=== PATIENT | female | born 1985 | race Two or more races ===

== ENCOUNTER 2022-11-09 12:28 | Inpatient (IN) | payer BC, OTHER ==
[2022-11-09] MEDS ORDERED: ONDANSETRON 4 MG/2 ML VIAL IVP STA (12:50)
[2022-11-09] MEDS ORDERED: IPRATROPIUM-ALBUTEROL 3 ML NEB INHALATION STA (12:50)
[2022-11-09] MEDS ORDERED: SODIUM CHLORIDE 0.9% 1,000 ML IV STA ×2 (12:50→15:25)
--- NOTE | 2022-11-09 12:55 | ED ---
Chest Pain HPI - General Chief Complaint: Upper Respiratory Infection Stated Complaint: Chest Pain, Vomiting Blood,also in nose blows Time Seen by Provider: 11/09/22 12:42 Source: patient, RN notes reviewed Mode of arrival: ambulatory Limitations: no limitations - History of Present Illness Initial Comments: This is a 37-year-old female who presents to the emergency department for chest pain and shortness of breath. States that the symptoms started 2-3 days ago. Symptoms have now progressed into nausea and vomiting as well. The repetitive coughing has caused blood in her sputum, which is also mixed in with her vomit. She has also noticed blood when blowing her nose too hard. She does have a history of asthma and has not gotten any relief in symptoms from her inhaler. Describes the chest pain as someone sitting on her chest. Denies any personal or family cardiac history. Also denies having symptoms this severe in the past. Denies any fevers, chills, sore throat, palpitations, abdominal pain, diarrhea, back pain, or headaches. MD Complaint: chest pain Onset/Timin -: days(s) - Related Data Home Medications Medication Instructions Recorded Confirmed ALPRAZolam [Xanax] 0.25 mg PO TID PRN 11/09/22 11/09/22 Acetaminophen-Codeine 300-30mg 0.5 - 1 tab PO Q6H PRN 11/09/22 11/09/22 [Tylenol w/codeine #3] Cetirizine HCl [Zyrtec] 10 mg PO DAILY 11/09/22 11/09/22 Hydrocortisone Cream 1 applic TOPICAL QID PRN 11/09/22 11/09/22 [Hydrocortisone 2.5% Cream] hydrOXYzine HCL [Atarax] 50 mg PO TID PRN 11/09/22 11/09/22 Allergies Allergy/AdvReac Type Severity Reaction Status Date / Time No Known Allergies Allergy Verified 11/09/22 15:50 Review of Systems ROS Statement: Those systems with pertinent positive or pertinent negative responses have been documented in the HPI. ROS Other: All systems not noted in ROS Statement are negative. Past Medical History Past Medical History: No Reported History History of Any Multi-Drug Resistant Organisms: None Reported Past Surgical History: Tubal Ligation Past Psychological History: Anxiety, Depression Smoking Status: Current every day smoker Past Alcohol Use History: None Reported Past Drug Use History: Marijuana General Exam Limitations: no limitations General appearance: alert, anxious Head exam: Present: atraumatic, normocephalic, normal inspection Respiratory exam: Present: normal lung sounds bilaterally. Absent: respiratory distress, wheezes, rales, rhonchi, stridor Cardiovascular Exam: Present: regular rate, normal rhythm, normal heart sounds. Absent: systolic murmur, diastolic murmur, rubs, gallop, clicks GI/Abdominal exam: Present: soft, normal bowel sounds. Absent: distended, tenderness, guarding, rebound, rigid Neurological exam: Present: alert, oriented X3, CN II-XII intact Psychiatric exam: Present: normal affect, normal mood Skin exam: Present: warm, dry, intact, normal color. Absent: rash Course Vital Signs 11/09/22 11/09/22 11/09/22 12:35 13:12 13:22 Temperature 98.6 F Pulse Rate 106 H 87 98 Respiratory 20 Rate Blood Pressure 107/71 O2 Sat by Pulse 99 Oximetry 11/09/22 11/09/22 15:19 15:47 Temperature 98.7 F Pulse Rate 112 H 99 Respiratory 18 Rate Blood Pressure 116/77 O2 Sat by Pulse 99 Oximetry Chest Pain MDM - MDM This is a 37-year-old female who presents to the emergency department for chest pain and shortness of breath. Was pt. sent in by a medical professional or institution? @ -No Did you speak to anyone other than the patient for history? @ -No Did you review nursing and triage notes? @ -Yes, and I agree, it is accurate with regards to the patient's symptoms. Were old charts reviewed? @ -No Differential Diagnosis? @ -Differential Chest Pain: Stable Angina, Unstable Angina, STEMI, NSTEMI Aortic Dissection, Pneumothorax, Musculoskeletal, Esophageal Spasm GERD, Cholecystitis, Pancreatitis, Zoster, this is not meant to be an all-inclusive list. EKG interpreted by me (3pts min.)? @ -EKG interpreted by me demonstrating the following: Sinus rhythm. Ventricular rate 96 beats per minute, MS interval 139 ms, QRS duration 85 ms, QTC 391 ms. X-rays interpreted by me (1pt min.)? @ -Chest x-ray obtained. My interpretation identifies a consolidation to the right mid and lower lobe of the lung. CT interpreted by me (1pt min.)? @ -CT angiogram of the chest obtained. My interpretation identifies a consolidation in the right mid and lower lobe of the lung. U/S interpreted by me (1pt. min.)? @ -Not obtained What testing was considered but not performed? (CT, X-rays, U/S, labs)? Why? @ -None What meds were considered but not given? Why? @ -None Did you discuss the management of the patient with other professionals? @ -Yes, Dr. Guzman, who accepts the patient for admission. Did you reconcile home meds? @ -Yes Was smoking cessation discussed for >3mins.? @ -No Was critical care preformed (if so, how long)? @ -No Were there social determinants of health that impacted care today? How? (Homelessness, low income, unemployed, alcoholism, drug addiction, transportation, low edu. Level, literacy, decrease access to med. care, nursing home, rehab)? @ -No Was there de-escalation of care discussed even if they declined? (Discuss DNR or withdrawal of care, Hospice)? @ -No What co-morbidities impacted this encounter? (DM, HTN, Smoking, COPD, CAD, Cancer, CVA, Hep., AIDS, mental health diagnosis, sleep apnea, morbid obesity)? @ -Asthma Was patient admitted / discharged? @ -Admitted. Lab work obtained revealing leukocytosis and an elevated d-dimer. Hypokalemia was also present. Chest x-ray reveals a patchy consolidation in the right mid and lower lobe of the lung. She was given a DuoNeb breathing treatment with only minor relief in symptoms. She did continue to complain of severe chest pain and was given a dose of Toradol and morphine which she found beneficial. CT angiogram of the chest was obtained in light of the elevated d- dimer. This identified no evidence of a pulmonary embolus. It did again identify the extensive right mid and lower lobe infiltrate with associated pleural effusion. Findings reviewed with the patient, in that her symptoms are related to pneumonia. Patient does meet sepsis criteria with the leukocytosis and tachycardia. She was given a total of 2L bolus of IV fluids, meeting the 30mL/kg requirement for sepsis fluid bolus, and also started on maintenance IV fluids at 130 mL/hr. Patient admitted to medicine for pneumonia complicated by sepsis. She was started on the pneumonia protocol with ceftriaxone and azithromycin. Blood cultures obtained. 40 mEq of K-dur administered for hypokalemia as well. Consult placed for pulmonology per the admitting team's request. Undiagnosed new problem with uncertain prognosis? @ -None Drug Therapy requiring intensive monitoring for toxicity (Heparin, Nitro, Insulin, Cardizem)? @ -None Were any procedures done? @ -None Diagnosis/symptom? @ -Pneumonia, sepsis, hypokalemia Acute, or Chronic, or Acute on Chronic? @ -Acute Uncomplicated (without systemic symptoms) or Complicated (systemic symptoms)? @ -Complicated Side effects of treatment? @ -None Exacerbation, Progression, or Severe Exacerbation] @ -Not applicable Poses a threat to life or bodily function? @ -Yes This case was discussed in detail with the attending ED physician, Dr. Buchanan. Presentation, findings, and treatment plan discussed in detail as well. Disposition Clinical Impression: Pneumonia, Sepsis, Hypokalemia Disposition: ADMITTED IP TO THIS HOSP
[2022-11-09 13:12] LABS: Basophils % (A) 0 %; Eosinophils # (A) 0.1 k/uL (0-0.7); Eosinophils % (A) 1 %; HCT 39.2 % (34.0-46.0); HGB 12.9 gm/dL (11.4-16.0); Lymphocytes # (A) 0.7 k/uL (1.0-4.8); Lymphocytes % (A) 6 %; Mean Platelet Volume 7.1; Monocytes # (A) 0.5 k/uL (0-1.0); Monocytes % (A) 4 %; Neutrophils # (A) 10.9 k/uL (1.3-7.7); Neutrophils % (A) 88 %; Platelet Count 442 k/uL (150-450); RBC 4.17 m/uL (3.80-5.40); RDW 13.2 % (11.5-15.5); WBC 12.4 k/uL (3.8-10.6)
[2022-11-09 13:22] LABS: HCG,Qualitative Serum Not Detected
[2022-11-09 13:24] LABS: ALT 36 U/L (4-34); AST 36 U/L (14-36); African American GFR (CKD) >90 (>60 ml/min/1.73 sqM); Albumin 3.5 g/dL (3.5-5.0); Alkaline Phosphatase 207 U/L (38-126); Anion Gap 13 mmol/L; Blood Urea Nitrogen 10 mg/dL (7-17); Calcium 8.9 mg/dL (8.4-10.2); Carbon Dioxide 21 mmol/L (22-30); Chloride 100 mmol/L (98-107); Glucose 135 mg/dL (74-99); Non-African American GFR(CKD) >90 (>60 ml/min/1.73 sqM); Potassium 3.2 mmol/L (3.5-5.1); Sodium 134 mmol/L (137-145); Total Bilirubin 0.9 mg/dL (0.2-1.3); Total Protein 7.5 g/dL (6.3-8.2)
[2022-11-09 13:41] LABS: INR 1.1 (<1.2); Partial Thromboplastin Time 29.1 sec (22.0-30.0); Prothrombin Time 11.1 sec (9.0-12.0)
--- NOTE | 2022-11-09 13:46 | XR ---
EXAMINATION TYPE: XR chest 2V DATE OF EXAM: 11/09/2022 1:41 PM COMPARISON: None TECHNIQUE: XR chest 2V Frontal and lateral views of the chest. CLINICAL INDICATION:Female, 37 years old with history of difficulty breathing; FINDINGS: Lungs/Pleura: No pneumothorax. Blunting of the right costophrenic angle. Elevation the right hemidiap hragm. Patchy consolidative opacity within the right mid and lower lung. Pulmonary vascularity: Unremarkable. Heart/mediastinum: Cardiomediastinal silhouette is unremarkable. Musculoskeletal: No acute osseous pathology. IMPRESSION: Small right pleural effusion with patchy consolidative opacity within the right mid to lower lung con cerning for pneumonia.
[2022-11-09] MEDS ORDERED: MORPHINE SULFATE 2 MG/ML SYRINGE IVP STA (13:57)
[2022-11-09] MEDS ORDERED: KETOROLAC 15 MG/ML 1 ML VIAL IVP STA (13:57)
--- NOTE | 2022-11-09 14:53 | CT ---
EXAMINATION TYPE: CT chest angio for PE CT DLP: 213.8 mGycm, Automated exposure control for dose reduction was used. DATE OF EXAM: 11/09/2022 2:34 PM COMPARISON: Chest radiograph from same day. CLINICAL INDICATION:Female, 37 years old with history of Chest pain, KONRAD, elevated d-dimer; Chest maritza n, KONRAD, elevated d-dimer TECHNIQUE/CONTRAST: CTA scan of the thorax is performed with IV Contrast, patient injected with 100ml mL of Isovue 370, p ulmonary embolism protocol. MIP images are created and reviewed. FINDINGS: Pulmonary Artery: There is no evidence for a filling defect within the pulmonary vasculature to sugge st acute pulmonary embolism. The pulmonary artery is of normal size. Lungs/Pleura: No pneumothorax. Trace right pleural effusion. Right middle lobe and right lower lobe c onsolidation with air bronchograms. Airway: Large airways are patent. Heart: Heart is within normal limits for size.. Vasculature: No evidence of aortic aneurysm. Mediastinum: Large right hilar lymph node measuring up to 1.2 cm short axis. Musculoskeletal: No acute osseous abnormalities. Multilevel Schmorl's nodes. Soft Tissues: Unremarkable. Lower neck: No significant findings. Upper Abdomen: No significant findings. IMPRESSION: 1. No evidence of pulmonary embolism. 2. Right middle and lower lobe consolidation with air bronchograms and trace right pleural effusion c onsistent with pneumonia. 3. Reactive right hilar lymphadenopathy likely secondary to #2.
[2022-11-09] MEDS ORDERED: PNEUMONIA PROTOCOL UTILIZED 1 EACH MISC PO PRN (15:20)
[2022-11-09] MEDS ORDERED: AZITHROMYCIN 500 MG in SODIUM CHLORIDE 0.9% 250 ML IVPB STA (15:20)
[2022-11-09] MEDS ORDERED: POTASSIUM CHLORIDE ER 20 MEQ TAB.ER PO STA (15:24)
[2022-11-09] MEDS ORDERED: LORazepam 2 MG/ML INJ IV STA (15:26)
[2022-11-09] MEDS ORDERED: NALOXONE 0.4 MG/ML 1 ML VIAL IV PRN (16:27)
[2022-11-09] MEDS ORDERED: IBUPROFEN 400 MG TAB PO PRN (16:27)
[2022-11-09] MEDS ORDERED: ONDANSETRON 4 MG/2 ML VIAL IVP PRN (16:27)
[2022-11-09] MEDS ORDERED: hydrOXYzine HCL 25 MG TAB PO PRN (16:48)
[2022-11-09] MEDS: ACETAMINOPHEN TAB 325 MG TAB PO PRN (18:58)
[2022-11-09] MEDS: KETOROLAC 15 MG/ML 1 ML VIAL IVP PRN (19:41)
[2022-11-09] MEDS: MORPHINE SULFATE 4 MG/ML SYRINGE IV PRN (19:42)
[2022-11-09] MEDS: SODIUM CHLORIDE 0.9% 1,000 ML IV SCH (19:43)
[2022-11-09] MEDS: ALPRAZolam 0.25 MG TAB PO PRN (19:43)
[2022-11-09] MEDS ORDERED: Acetaminophen-Codeine 300-30mg TAB PO PRN (20:21)
--- NOTE | 2022-11-09 20:22 | P.HPIM ---
History of Present Illness H&P Date: 11/09/22 Chief Complaint: Chest pain/cough/shortness of breath 37-year-old female who presents to the emergency department for chest pain and shortness of breath. States that the symptoms started 2-3 days ago. Symptoms have now progressed into nausea and vomiting as well. The repetitive coughing has caused blood in her sputum, which is also mixed in with her vomit. She has also noticed blood when blowing her nose too hard. She does have a history of asthma and has not gotten any relief in symptoms from her inhaler. Describes the chest pain as someone sitting on her chest. Denies any personal or family cardiac history. Also denies having symptoms this severe in the past. Chest x-ray reveals a patchy consolidation in the right mid and lower lobe of the lung CT angiogram of the chest was obtained in light of the elevated d-dimer; no evidence of a pulmonary embolus but reveals extensive right mid and lower lobe infiltrate with associated pleural effusion Blood work completed in ED reveals a WBC of 12.4, hemoglobin of 12.9 and platelet count of 442, sodium 134, potassium 3.2, BUN/creatinine of 10/0.76, ALT slightly elevated at 36; d-dimer is elevated at 0.79 Influenza A and B are negative, RSV PCR is negative, COVID-19 is negative Review of Systems REVIEW OF SYSTEMS: CONSTITUTIONAL: No fever, no malaise, no fatigue. HEENT: No recent visual problems or hearing problems. Denied any sore throat. CARDIOVASCULAR: No chest pain, orthopnea, PND, no palpitations, no syncope. PULMONARY: No shortness of breath, no cough, no hemoptysis. GASTROINTESTINAL: No diarrhea, no nausea, no vomiting, no abdominal pain. NEUROLOGICAL: No headaches, no weakness, no numbness. HEMATOLOGICAL: Denies any bleeding or petechiae. GENITOURINARY: Denies any burning micturition, frequency, or urgency. MUSCULOSKELETAL/RHEUMATOLOGICAL: Denies any joint pain, swelling, or any muscle pain. ENDOCRINE: Denies any polyuria or polydipsia. The rest of the 14-point review of systems is negative. Past Medical History Past Medical History: No Reported History History of Any Multi-Drug Resistant Organisms: None Reported Past Surgical History: Tubal Ligation Past Psychological History: Anxiety, Depression Smoking Status: Current every day smoker Past Alcohol Use History: None Reported Past Drug Use History: Marijuana Medications and Allergies Home Medications Medication Instructions Recorded Confirmed Type ALPRAZolam [Xanax] 0.25 mg PO TID PRN 11/09/22 11/09/22 History Acetaminophen-Codeine 300-30mg 0.5 - 1 tab PO Q6H PRN 11/09/22 11/09/22 History [Tylenol w/codeine #3] Cetirizine HCl [Zyrtec] 10 mg PO DAILY 11/09/22 11/09/22 History Hydrocortisone Cream 1 applic TOPICAL QID PRN 11/09/22 11/09/22 History [Hydrocortisone 2.5% Cream] hydrOXYzine HCL [Atarax] 50 mg PO TID PRN 11/09/22 11/09/22 History Allergies Allergy/AdvReac Type Severity Reaction Status Date / Time No Known Allergies Allergy Verified 11/09/22 15:50 Physical Exam Vitals: Vital Signs Temp Pulse Resp BP Pulse Ox 11/09/22 15:47 98.7 F 99 18 116/77 99 11/09/22 15:19 112 H 11/09/22 13:22 98 11/09/22 13:12 87 11/09/22 12:35 98.6 F 106 H 20 107/71 99 Intake and Output 11/09/22 11/09/22 11/09/22 06:59 14:59 22:59 Other: Weight 58.513 kg General appearance: alert, anxious Head exam: Present: atraumatic, normocephalic, normal inspection Respiratory exam: Present: normal lung sounds bilaterally. Absent: respiratory distress, wheezes, rales, rhonchi, stridor Cardiovascular Exam: Present: regular rate, normal rhythm, normal heart sounds. Absent: systolic murmur, diastolic murmur, rubs, gallop, clicks GI/Abdominal exam: Present: soft, normal bowel sounds. Absent: distended, tenderness, guarding, rebound, rigid Neurological exam: Present: alert, oriented X3, CN II-XII intact Psychiatric exam: Present: normal affect, normal mood Skin exam: Present: warm, dry, intact, normal color. Absent: rash Results CBC & Chem 7: 11/09/22 13:00 11/09/22 13:00 Labs: Abnormal Lab Results - Last 24 Hours (Table) 11/09/22 11/09/22 11/09/22 Range/Units 13:00 13:00 13:00 WBC 12.4 H (3.8-10.6) k/uL Neutrophils # 10.9 H (1.3-7.7) k/uL Lymphocytes # 0.7 L (1.0-4.8) k/uL D-Dimer 0.79 H (<0.60) mg/L FEU Sodium 134 L (137-145) mmol/L Potassium 3.2 L (3.5-5.1) mmol/L Carbon Dioxide 21 L (22-30) mmol/L Glucose 135 H (74-99) mg/dL ALT 36 H (4-34) U/L Alkaline Phosphatase 207 H (38-126) U/L Assessment and Plan Assessment: 1. Sepsis; related to right mid and lower lobe pneumonia - Patient meets sepsis criteria with leukocytosis and tachycardia; patient received 2 L IV fluid bolus per sepsis protocol and is started on IV fluids in form of normal saline at rate of 1 30 mL per hour 2. Right mid and lower lobe pneumonia; patient has been placed on IV ceftriaxone 2 g IV every 24 hours and azithromycin; we will monitor CBC, CRP and pro-calcitonin - DuoNeb nebulizer treatments 4 times a day and when necessary; O2 per nasal cannula keeping O2 saturation greater than 92% - Consult pulmonary service of further recommendations 3. Electrolyte imbalance; hypokalemia; patient is supplemented in ED with 40 mEq KCl; we will monitor electrolytes closely and make further recommendations as needed 4. Elevated d-dimer; CTA chest was completed which is negative for PE 5. Anxiety; patient takes Xanax 0.25 mg by mouth 3 times a day 6. Seasonal ALLERGY; Zyrtec 10 mg daily 7. Chronic pain; Tylenol No. 3 one tablet every 6 hours when necessary DVT prophylaxis; SCDs CODE STATUS; full code
[2022-11-10] MEDS: MORPHINE SULFATE 4 MG/ML SYRINGE IV PRN ×4 (01:24→20:01)
[2022-11-10] MEDS: ACETAMINOPHEN TAB 325 MG TAB PO PRN ×2 (02:10→20:01)
[2022-11-10] MEDS: SODIUM CHLORIDE 0.9% 1,000 ML IV SCH ×3 (02:11→23:09)
[2022-11-10] MEDS ORDERED: IPRATROPIUM-ALBUTEROL 3 ML NEB INHALATION PRN (03:39)
--- NOTE | 2022-11-10 05:23 | P.CNPUL ---
History of Present Illness Consult date: 11/10/22 Requesting physician: Harriet Jacobson Reason for consult: pneumonia Chief complaint: shortness of breath and chest pain History of present illness: I am seeing this patient in consultation today 11/10/2022 for right middle lobe community-acquired pneumonia. Patient is a 37-year-old white female with past medical history significant for intermittent bronchial asthma, and is an ex- tobacco smoker of one week ago. Reportedly only smoked approximately 2 cigarettes per day prior to this.patient presented to emergency room yesterday afternoon complaining of shortness of breath and associated right-sided chest pain that started 2-3 days prior to arrival. she has been using her rescue inhaler frequently throughout the day. Chest pain is nonradiating and worse with coughing and deep breathing. She states that she's had a cough with some small amount of hemoptysis. She also states that she's had some nausea and vomiting with possible bloody emesis. Denies any abdominal pain, diarrhea, constipation. Denies history of GI bleeding, esophageal varices, or heavy NSAID use. Patient is currently sitting up in bed, on room air, in no acute distress. Chest CTA on admission showed no evidence of pulmonary embolism. There was right middle and lower lobe consolidation with air bronchograms and trace right pleural effusion consistent with pneumonia. There is reactive right hilar lymphadenopathy secondary to above. CBC on arrival shows mild leukocytosis with a WBC count of 12.4, hemoglobin 12.9, hematocrit 39.2, platelets 442. Patient was started empirically on a combination of Rocephin and azithromycin. Currently, febrile with a T-max of 101.1 degrees Fahrenheit. BMP on arrival shows sodium 134, potassium 3.2, chloride 100, serum bicarbonate 21, BUN 10, creatinine 0.76, glucose 135. Lactic acid 1.2. Troponin less than 0.012. Influenza, RSV, COVID-19 negative. Normal sinus Infusing at 130 ML's per hour. DuoNeb have been started. Overall, the patient appears nontoxic and is hemodynamically stable. Review of Systems REVIEW OF SYSTEMS: CONSTITUTIONAL: Denies any recent significant weight loss or weight gain. admits fever EYES: Denies change in vision. EARS, NOSE, MOUTH, THROAT: Denies headaches, denies sore throat. CARDIOVASCULAR: Denies radiating chest pain, palpitations or syncopal episodes. RESPIRATORY: see HPI. GASTROINTESTINAL: Denies change in appetite, abdominal pain, or diarrhea. admits transient episode of nausea and vomiting, possible hematemesis GENITOURINARY: Denies hematuria, denies infections. MUSKULOSKELETAL: Denies pain, denies swelling. INTEGUMENTARY: Denies rash, denies eczema. NEUROLOGICAL: Denies recent memory loss, no recent seizure activity. PSYCHIATRIC: Denies anxiety, denies depression. HEMATOLOGIC/LYMPHATIC: Denies anemia, denies enlarged lymph node Past Medical History Past Medical History: No Reported History History of Any Multi-Drug Resistant Organisms: None Reported Past Surgical History: Tubal Ligation Past Psychological History: Anxiety, Depression Smoking Status: Current every day smoker Past Alcohol Use History: None Reported Past Drug Use History: Marijuana Medications and Allergies Home Medications Medication Instructions Recorded Confirmed Type ALPRAZolam [Xanax] 0.25 mg PO TID PRN 11/09/22 11/09/22 History Acetaminophen-Codeine 300-30mg 0.5 - 1 tab PO Q6H PRN 11/09/22 11/09/22 History [Tylenol w/codeine #3] Cetirizine HCl [Zyrtec] 10 mg PO DAILY 11/09/22 11/09/22 History Hydrocortisone Cream 1 applic TOPICAL QID PRN 11/09/22 11/09/22 History [Hydrocortisone 2.5% Cream] hydrOXYzine HCL [Atarax] 50 mg PO TID PRN 11/09/22 11/09/22 History Allergies Allergy/AdvReac Type Severity Reaction Status Date / Time No Known Allergies Allergy Verified 11/09/22 15:50 Physical Exam Vitals: Vital Signs Temp Pulse Pulse Resp BP BP Pulse Ox 11/10/22 04:06 116 H 11/10/22 03:55 112 H 11/10/22 03:51 100.0 F H 116 H 20 95 11/10/22 02:08 101.1 F H 122 H 17 113/76 99 11/09/22 19:40 100.5 F H 116 H 22 102/65 96 11/09/22 19:00 101.2 F H 11/09/22 15:47 98.7 F 99 18 116/77 99 11/09/22 15:19 112 H 11/09/22 13:22 98 11/09/22 13:12 87 11/09/22 12:35 98.6 F 106 H 20 107/71 99 Intake and Output 11/09/22 11/09/22 11/10/22 14:59 22:59 06:59 Intake Total 240 Balance 240 Intake: Oral 240 Other: # Voids 1 Weight 58.513 kg 58.513 kg GENERAL EXAM: Alert, 37-year-old white female , comfortable in no apparent distress. HEAD: Normocephalic and atraumatic EYES: Normal reaction of pupils, equal size. NOSE: Clear with pink turbinates. THROAT: No erythema or exudates. NECK: No masses, no JVD. CHEST: No chest wall deformity. LUNGS: Diminished right lower lobe lung sounds. on room air. No conversational dyspnea or accessory muscle use.. CVS: S1 and S2 normal with no audible murmur, regular rhythm. No extra heart sounds ABDOMEN: No hepatosplenomegaly, active bowel sounds, no guarding or rigidity. SPINE: No scoliosis or deformity SKIN: No rashes CENTRAL NERVOUS SYSTEM: No focal deficits, tone is normal in all 4 extremities. EXTREMITIES: There is no peripheral edema, clubbing, or cyanosis. Peripheral pulses are intact. Results - Laboratory Findings CBC and BMP: 11/09/22 13:00 11/09/22 13:00 PT/INR, D-dimer PT 11.1 sec (9.0-12.0) 11/09/22 13:00 INR 1.1 (<1.2) 11/09/22 13:00 D-Dimer 0.79 mg/L FEU (<0.60) H 11/09/22 13:00 Abnormal lab findings: Abnormal Labs 11/09/22 11/09/22 11/09/22 13:00 13:00 13:00 WBC 12.4 H Neutrophils # 10.9 H Lymphocytes # 0.7 L D-Dimer 0.79 H Sodium 134 L Potassium 3.2 L Carbon Dioxide 21 L Glucose 135 H ALT 36 H Alkaline Phosphatase 207 H - Diagnostic Findings Chest x-ray: image reviewed CT scan - chest: image reviewed Assessment and Plan Assessment: Right middle lobe community acquired pneumonia, chest CTA demonstrates right middle lobe consolidation with air bronchograms and trace right pleural effusion consistent with pneumonia. Chest pain, secondary to above. ACS ruled out Suspected hemoptysis, likely secondary to pneumonia, self limiting Elevated d-dimer, pulmonary embolism ruled out Hypokalemia Mild intermittent bronchial asthma, stable Ex smoker plan: Patient's medications, labs, chest x-ray, chest CTA were reviewed on room air Continue empiric antibiotics in the form of azithromycin and Rocephin blood cultures are pending start Duonebs Electrolytes are being corrected Currently receiving a combination of analgesics for her right sided chest pain; Including Tylenol #3, Toradol, and PRN Morphine. Add Pepcid for GI prophylaxis Patient appears non-toxic and is hemodynamically stable we will continue to follow and make recommendations I have personally seen and examined the patient, performed the documentation and the assessment and plan as written. Number of minutes spent on the visit:20 Time with Patient: Greater than 30
--- NOTE | 2022-11-10 07:19 | XR ---
EXAMINATION TYPE: XR chest 2V DATE OF EXAM: 11/10/2022 6:22 AM COMPARISON: Chest radiographs from 11/09/2022, CTA chest 11/09/2022 TECHNIQUE: XR chest 2V Frontal and lateral views of the chest. CLINICAL INDICATION:Female, 37 years old with history of pneumonia; FINDINGS: Lungs/Pleura: No pneumothorax. Blunting of the right costophrenic angle. Elevation the right hemidiap hragm. Patchy consolidative opacity within the right mid and lower lung. Pulmonary vascularity: Unremarkable. Heart/mediastinum: Cardiomediastinal silhouette is unremarkable. Musculoskeletal: No acute osseous pathology. IMPRESSION: Similar right mid to lower lung airspace opacities consistent with pneumonia. Increased small right p leural effusion.
[2022-11-10] MEDS: FAMOTIDINE 20 MG TAB PO SCH (07:46)
[2022-11-10] MEDS: ALPRAZolam 0.25 MG TAB PO PRN (07:46)
[2022-11-10] MEDS: LORATADINE 10 MG TAB PO SCH (07:46)
[2022-11-10] MEDS: IPRATROPIUM-ALBUTEROL 3 ML NEB INHALATION SCH ×4 (08:32→21:25)
[2022-11-10] MEDS: AZITHROMYCIN 500 MG TAB PO SCH (10:11)
[2022-11-10] MEDS: KETOROLAC 15 MG/ML 1 ML VIAL IVP PRN (10:37)
[2022-11-10] MEDS: ALPRAZolam 0.5 MG TAB PO PRN ×2 (11:11→20:01)
[2022-11-10 12:49] LABS: Basophils % (A) 0 %; Eosinophils # (A) 0.1 k/uL (0-0.7); Eosinophils % (A) 1 %; HCT 32.4 % (34.0-46.0); HGB 10.6 gm/dL (11.4-16.0); Lymphocytes # (A) 1.1 k/uL (1.0-4.8); Lymphocytes % (A) 12 %; MCH 31.1 pg (25.0-35.0); MCHC 32.7 g/dL (31.0-37.0); MCV 95.1 fL (80.0-100.0); Mean Platelet Volume 8.2; Monocytes # (A) 0.3 k/uL (0-1.0); Monocytes % (A) 3 %; Neutrophils # (A) 7.6 k/uL (1.3-7.7); Neutrophils % (A) 83 %; Platelet Count 422 k/uL (150-450); RDW 13.5 % (11.5-15.5); WBC 9.2 k/uL (3.8-10.6)
[2022-11-10 13:04] LABS: Potassium 3.8 mmol/L (3.5-5.1)
[2022-11-10 13:05] LABS: African American GFR (CKD) >90 (>60 ml/min/1.73 sqM); Anion Gap 10 mmol/L; Blood Urea Nitrogen 8 mg/dL (7-17); Calcium 7.6 mg/dL (8.4-10.2); Carbon Dioxide 18 mmol/L (22-30); Chloride 109 mmol/L (98-107); Glucose 102 mg/dL (74-99); Non-African American GFR(CKD) >90 (>60 ml/min/1.73 sqM); Sodium 137 mmol/L (137-145)
[2022-11-10] MEDS ORDERED: LEVOFLOXACIN 500MG-D5W PMX 500 MG in DEXTROSE/WATER 1 100ML.BAG IVPB SCH (20:15)
--- NOTE | 2022-11-11 05:26 | P.PN ---
Subjective Progress Note Date: 11/10/22 37-year-old female who presents to the emergency department for chest pain and shortness of breath. States that the symptoms started 2-3 days ago. Symptoms have now progressed into nausea and vomiting as well. The repetitive coughing has caused blood in her sputum, which is also mixed in with her vomit. She has also noticed blood when blowing her nose too hard. She does have a history of asthma and has not gotten any relief in symptoms from her inhaler. Describes the chest pain as someone sitting on her chest. Denies any personal or family cardiac history. Also denies having symptoms this severe in the past. Chest x-ray reveals a patchy consolidation in the right mid and lower lobe of the lung CT angiogram of the chest was obtained in light of the elevated d-dimer; no evidence of a pulmonary embolus but reveals extensive right mid and lower lobe infiltrate with associated pleural effusion Blood work completed in ED reveals a WBC of 12.4, hemoglobin of 12.9 and platelet count of 442, sodium 134, potassium 3.2, BUN/creatinine of 10/0.76, ALT slightly elevated at 36; d-dimer is elevated at 0.79 Influenza A and B are negative, RSV PCR is negative, COVID-19 is negative 11/10/2022 Patient is seen and evaluated in follow-up maintained on antibiotics in the form of Zithromax and ceftriaxone with pulmonary following. Weaning FiO2 as tolerated and currently maintaining oxygen saturations above 90% on room air. Patient's virrology testing including influenza, RSV, Covid were all negative and Legionella urine was positive. We'll transition to Levaquin along with Zithromax consult infectious disease and appreciate input and recommendations. Patient is having intermittent fevers denies any worsening shortness of breath or chest pains. Patient is tolerating diet and needs encouragement with oral intake. Chest x-ray continues to show right lobe infiltrate with continued pl eural effusions. Will also adjust and decrease the rate of IV hydration. Continues to have intermittent nausea. Review of systems: Constitutional: No reports of fatigue, fever, or chills Cardiovascular: No reports of chest pain or palpitations Respiratory: No reports of shortness of breath , reports cough GI: reports of nausea, no vomiting, or diarrhea : No reports of dysuria or retention Neurovascular: No reports of weakness or numbness All medications have been reviewed Physical exam: Gen: This is a 37-year-old female who is awake, alert and oriented 3, well- developed, well-nourished HEENT: Head is atraumatic, normocephalic. Pupils equal, round. Sclerae is anicteric. NECK: Supple. No JVD. No lymphadenopathy. No thyromegaly. LUNGS: Diminished breath sounds bilaterally. No wheezes or rhonchi. No intercostal retractions. HEART: Regular rate and rhythm. No murmur. ABDOMEN: Soft. Bowel sounds are present. No masses. No tenderness. EXTREMITIES: No pedal edema. No calf tenderness. NEUROLOGICAL: Patient is awake, alert and oriented x3. Cranial nerves 2 through 12 are grossly intact. Assessment: -Sepsis; related to right mid and lower lobe pneumonia, present on admission likely community-acquired -Right mid and lower lobe pneumonia -Electrolyte imbalance; hypokalemia -Elevated d-dimer; CTA chest was completed which is negative for PE -Anxiety history -Seasonal ALLERGY -Chronic pain history -DVT prophylaxis; SCDs -GI prophylaxis -full code Plan: Patient is continued on antibiotics in the form of Zithromax and ceftriaxone. Legionella urine was positive and we'll transition ceftriaxone to Levaquin and consult infectious disease and appreciate input and recommendations Pulmonary following an chest x-ray continues to show right lobe pneumonia with pleural effusion Patient was continued on IV hydration and will decrease the rate to 75 ML per hour Follow-up labs for a.m. ordered Encouraged increased activity as tolerated The impression and plan of care has been dictated by Shari Ca, Nurse Practitioner as directed. Dr. Spike MD I have performed a history and examination and MDM of this patient, discussed the same with the dictator, and agree with the dictator's assessment and plan as written ,documented as a scribe. Based on total visit time, I have performed more than 50% of the visit. Objective - Vital Signs Vital signs: Vital Signs Temp 99.4 F 11/10/22 06:59 Pulse 104 H 11/10/22 08:45 Resp 18 11/10/22 07:59 BP 103/74 11/10/22 06:59 Pulse Ox 99 11/10/22 08:32 FiO2 Intake & Output 11/09/22 11/10/22 11/10/22 18:59 06:59 18:59 Intake Total 2220 Balance 2220 Weight 58.513 kg 58.513 kg Intake: Intake, IV Titration 1500 Amount Sodium Chloride 0.9% 1, 1500 000 ml @ 130 mls/hr IV . Q7H42M [facility] Rx#:[id number] Oral 720 Other: # Voids 2 - Labs CBC & Chem 7: 11/10/22 10:56 11/10/22 10:56 Labs: Abnormal Lab Results - Last 24 Hours (Table) 11/09/22 11/09/22 11/09/22 Range/Units 13:00 13:00 13:00 WBC 12.4 H (3.8-10.6) k/uL Neutrophils # 10.9 H (1.3-7.7) k/uL Lymphocytes # 0.7 L (1.0-4.8) k/uL D-Dimer 0.79 H (<0.60) mg/L FEU Sodium 134 L (137-145) mmol/L Potassium 3.2 L (3.5-5.1) mmol/L Carbon Dioxide 21 L (22-30) mmol/L Glucose 135 H (74-99) mg/dL ALT 36 H (4-34) U/L Alkaline Phosphatase 207 H (38-126) U/L
[2022-11-11] MEDS: SODIUM CHLORIDE 0.9% 1,000 ML IV SCH ×2 (05:47→21:38)
[2022-11-11] MEDS: ALPRAZolam 0.5 MG TAB PO PRN ×2 (08:26→21:37)
[2022-11-11] MEDS: AZITHROMYCIN 500 MG TAB PO SCH (08:26)
[2022-11-11] MEDS: LORATADINE 10 MG TAB PO SCH (08:26)
[2022-11-11] MEDS: FAMOTIDINE 20 MG TAB PO SCH (08:27)
[2022-11-11] MEDS: MORPHINE SULFATE 4 MG/ML SYRINGE IV PRN ×3 (08:27→23:31)
[2022-11-11] MEDS: ACETAMINOPHEN TAB 325 MG TAB PO PRN (08:27)
[2022-11-11] MEDS: IPRATROPIUM-ALBUTEROL 3 ML NEB INHALATION SCH ×4 (09:08→20:45)
--- NOTE | 2022-11-11 13:42 | P.PN ---
Subjective Progress Note Date: 11/11/22 I am seeing this patient in consultation today 11/10/2022 for right middle lobe community-acquired pneumonia. Patient is a 37-year-old white female with past medical history significant for intermittent bronchial asthma, and is an ex- tobacco smoker of one week ago. Reportedly only smoked approximately 2 cigarettes per day prior to this.patient presented to emergency room yesterday afternoon complaining of shortness of breath and associated right-sided chest pain that started 2-3 days prior to arrival. she has been using her rescue inhaler frequently throughout the day. Chest pain is nonradiating and worse with coughing and deep breathing. She states that she's had a cough with some small amount of hemoptysis. She also states that she's had some nausea and vomiting with possible bloody emesis. Denies any abdominal pain, diarrhea, constipation. Denies history of GI bleeding, esophageal varices, or heavy NSAID use. Patient is currently sitting up in bed, on room air, in no acute distress. Chest CTA on admission showed no evidence of pulmonary embolism. There was right middle and lower lobe consolidation with air bronchograms and trace right pleural effusion consistent with pneumonia. There is reactive right hilar lymphadenopathy secondary to above. CBC on arrival shows mild leukocytosis with a WBC count of 12.4, hemoglobin 12.9, hematocrit 39.2, platelets 442. Patient was started empirically on a combination of Rocephin and azithromycin. Currently, febrile with a T-max of 101.1 degrees Fahrenheit. BMP on arrival shows sodium 134, potassium 3.2, chloride 100, serum bicarbonate 21, BUN 10, creatinine 0.76, glucose 135. Lactic acid 1.2. Troponin less than 0.012. Influenza, RSV, COVID-19 negative. Normal sinus Infusing at 130 ML's per hour. DuoNeb have been started. Overall, the patient appears nontoxic and is hemodynamically stable. The patient is seen today 11/11/2022 in follow-up on the regular medical floor. She is currently sitting up in bed. Awake and alert in no acute distress. She is still having a loose congested cough. Still having temperatures with a T-max of 102 this morning. She was found to be positive for legionella and is currently on Levaquin. Her pro-calcitonin was 2.06. She is maintaining good O2 saturations in the 90s on room air. No IV fluids. Follow-up chest x-ray was showing similar right mid to lower lung airspace opacities. Objective - Vital Signs Vital signs: Vital Signs Temp 97.9 F 11/11/22 13:09 Pulse 105 H 11/11/22 13:09 Resp 17 11/11/22 13:09 BP 106/70 11/11/22 13:09 Pulse Ox 97 11/11/22 13:09 FiO2 Intake & Output 11/10/22 11/11/22 11/11/22 18:59 06:59 18:59 Other: # Voids 3 6 6 - Exam GENERAL EXAM: Alert, pleasant 37-year-old female, on room air, fairly comforta ble in no apparent distress. HEAD: Normocephalic. EYES: Normal reaction of pupils, equal size. NOSE: Clear with pink turbinates. THROAT: No erythema or exudates. NECK: No masses, no JVD. CHEST: No chest wall deformity. LUNGS: Equal air entry with few scattered rhonchi in the right lung. CVS: S1 and S2 normal with no audible murmur, regular rhythm. ABDOMEN: No hepatosplenomegaly, normal bowel sounds, no guarding or rigidity. SPINE: No scoliosis or deformity SKIN: No rashes CENTRAL NERVOUS SYSTEM: No focal deficits, tone is normal in all 4 extremities. EXTREMITIES: There is no peripheral edema. No clubbing, no cyanosis. Peripheral pulses are intact. - Labs CBC & Chem 7: 11/10/22 10:56 11/10/22 10:56 Labs: Abnormal Lab Results - Last 24 Hours (Table) 11/10/22 11/10/22 Range/Units 07:30 10:56 Procalcitonin 2.06 H (0.02-0.09) ng/mL Urine Legionella Ag Positive A (Negative) Microbiology - Last 24 Hours (Table) 11/09/22 15:39 Blood Culture Gram Stain - Final Blood Blood Culture - Final Coagulase Negative Staph 11/09/22 15:39 Blood Culture - Preliminary Blood Assessment and Plan Assessment: Right middle lobe community acquired legionella pneumonia, chest CTA demonstrates right middle lobe consolidation with air bronchograms and trace right pleural effusion consistent with pneumonia. Chest pain, secondary to above. ACS ruled out Suspected hemoptysis, likely secondary to pneumonia, self limiting Elevated d-dimer, pulmonary embolism ruled out Hypokalemia Mild intermittent bronchial asthma, stable Ex smoker Plan: The patient was seen and evaluated Chest x-ray, medications reviewed Legionella antigen positive Currently on Levaquin Follow-up chest x-ray in a.m. Possible discharge in a.m. We will continue to follow I have personally seen and examined the patient, performed the documentation and the assessment and plan as written. Number of minutes spent on the visit: 10.
[2022-11-11] MEDS ORDERED: LEVOFLOXACIN 750MG-D5W PMX 750 MG in DEXTROSE/WATER 1 150ML.BAG IVPB SCH (21:00)
--- NOTE | 2022-11-11 21:26 | P.CONS ---
History of Present Illness - Reason for Consult Consult date: 11/11/22 - History of Present Illness Patient is a 37-year-old female with a past medical history significant for anxiety depression current everyday smoker presenting to the hospital 2 days ago for evaluation of right-sided chest pain and shortness of breath patient said it has been going on for about 2 to 3 days before presentation to hospital patient describes the pain to be sharp in nature, stable 2017 by the time she was in the hospital did have some relief with the pain medication no radiation. Also episodes of nausea vomiting and did have a cough which is moderate intensity. The sputum with some blood mixed into it patient denies having any diarrhea on presentation to the hospital the patient was initially febrile subsequent spike a fever of 101.2 degrees Fahrenheit and did have temperature of 102 F this morning patient was tachycardic no significant hypoxemia or need for supplemental oxygen did have vital 4.4 with a left shift creatinine 0.76 liver enzymes normal procalcitonin 2.06 influenza RSV COVID test was negative the patient urine for Legionella antigen came back positive patient did have a chest x-ray small right effusion with patchy consolidative opacity within the right mid to lower lung concerning for pneumonia she also have a CT angiogram of the chest that has been negative for PE did shows right middle and lower lobe consolidation with air bronchogram trace effusion concerning for pneumonia patient was initially on Rocephin and Zithromax subsequently started on Levaquin infectious was consulted for further management of antibiotic therapy patient also have blood culture positive with the coagulase-negative staph Past Medical History Past Medical History: No Reported History History of Any Multi-Drug Resistant Organisms: None Reported Past Surgical History: Tubal Ligation Past Psychological History: Anxiety, Depression Smoking Status: Current every day smoker Past Alcohol Use History: None Reported Past Drug Use History: Marijuana Medications and Allergies Home Medications Medication Instructions Recorded Confirmed Type ALPRAZolam [Xanax] 0.25 mg PO TID PRN 11/09/22 11/09/22 History Acetaminophen-Codeine 300-30mg 0.5 - 1 tab PO Q6H PRN 11/09/22 11/09/22 History [Tylenol w/codeine #3] Cetirizine HCl [Zyrtec] 10 mg PO DAILY 11/09/22 11/09/22 History Hydrocortisone Cream 1 applic TOPICAL QID PRN 11/09/22 11/09/22 History [Hydrocortisone 2.5% Cream] hydrOXYzine HCL [Atarax] 50 mg PO TID PRN 11/09/22 11/09/22 History Allergies Allergy/AdvReac Type Severity Reaction Status Date / Time No Known Allergies Allergy Verified 11/09/22 15:50 Physical Exam Vitals: Vital Signs Temp Pulse Pulse Resp BP Pulse Ox 11/11/22 20:54 104 H 11/11/22 20:45 101 H 11/11/22 19:30 98.4 F 117 H 19 112/80 98 11/11/22 16:39 104 H 11/11/22 16:26 100 11/11/22 13:09 97.9 F 105 H 17 106/70 97 11/11/22 12:56 100 11/11/22 12:43 96 11/11/22 10:24 98.2 F 11/11/22 09:21 84 11/11/22 09:08 84 11/11/22 07:35 118 H 18 11/11/22 07:21 102 F H 118 H 18 127/74 91 L 11/11/22 01:05 98.2 F 85 18 119/78 98 11/10/22 21:35 100 11/10/22 21:25 100 Intake and Output 11/11/22 11/11/22 11/11/22 06:59 14:59 22:59 Other: # Voids 6 6 3 Results CBC & Chem 7: 11/10/22 10:56 11/10/22 10:56 Labs: Abnormal Lab Results - Last 24 Hours (Table) 11/10/22 Range/Units 10:56 Procalcitonin 2.06 H (0.02-0.09) ng/mL Microbiology - Last 24 Hours (Table) 11/09/22 15:39 Blood Culture Gram Stain - Final Blood Blood Culture - Final Coagulase Negative Staph 11/09/22 15:39 Blood Culture - Preliminary Blood Assessment and Plan Plan: 1patient presented hospital with sepsis in this patient who did have a fever ta chycardia elevated white count source is pneumonia with urine coming positive with Legionella antigen concerning for Legionella pneumonia 2positive blood culture with coagulase-negative staph likely skin contamination. 3we will increase the dose of Levaquin to 750 mg daily. We will follow on clinical condition and cultures to further adjust medication if needed Thank you for this consultation we will follow the patient along with you Dictation was produced using [employer] dictation software. please excuse any grammatical, word or spelling errors. Time with Patient: Greater than 30
--- NOTE | 2022-11-12 05:25 | P.PN ---
Subjective Progress Note Date: 11/11/22 37-year-old female who presents to the emergency department for chest pain and shortness of breath. States that the symptoms started 2-3 days ago. Symptoms have now progressed into nausea and vomiting as well. The repetitive coughing has caused blood in her sputum, which is also mixed in with her vomit. She has also noticed blood when blowing her nose too hard. She does have a history of asthma and has not gotten any relief in symptoms from her inhaler. Describes the chest pain as someone sitting on her chest. Denies any personal or family cardiac history. Also denies having symptoms this severe in the past. Chest x-ray reveals a patchy consolidation in the right mid and lower lobe of the lung CT angiogram of the chest was obtained in light of the elevated d-dimer; no evidence of a pulmonary embolus but reveals extensive right mid and lower lobe infiltrate with associated pleural effusion Blood work completed in ED reveals a WBC of 12.4, hemoglobin of 12.9 and platelet count of 442, sodium 134, potassium 3.2, BUN/creatinine of 10/0.76, ALT slightly elevated at 36; d-dimer is elevated at 0.79 Influenza A and B are negative, RSV PCR is negative, COVID-19 is negative 11/10/2022 Patient is seen and evaluated in follow-up maintained on antibiotics in the form of Zithromax and ceftriaxone with pulmonary following. Weaning FiO2 as tolerated and currently maintaining oxygen saturations above 90% on room air. Patient's virrology testing including influenza, RSV, Covid were all negative and Legionella urine was positive. We'll transition to Levaquin along with Zithromax consult infectious disease and appreciate input and recommendations. Patient is having intermittent fevers denies any worsening shortness of breath or chest pains. Patient is tolerating diet and needs encouragement with oral intake. Chest x-ray continues to show right lobe infiltrate with continued pl eural effusions. Will also adjust and decrease the rate of IV hydration. Continues to have intermittent nausea. 11/11/2022 Patient is seen and evaluated follow-up with family at bedside. Patient was continued on ceftriaxone along with Zithromax and was found to have positive urine Legionella concerns of Legionella pneumonia and have consulted infectious disease. Discussed further and was started on Levaquin and will increase the dose to 750 mg daily and patient will likely need this orally on discharge for 2 weeks course. Nursing staff made aware that the health department needs to be c ontacted regarding to this positive Legionella. Patient is afebrile continues to report some shortness of breath and occasional nausea from the cough with no reported chest pain. Patient is on room air and has been instructed to increase activity as tolerated. Report chest pain or palpitations. Patient is tolerating diet. Review of systems: Constitutional: No reports of fatigue, fever, or chills Cardiovascular: No reports of chest pain or palpitations Respiratory: reports of shortness of breath with exertion, reports cough GI: reports of nausea occasionally, no vomiting, or diarrhea : No reports of dysuria or retention Neurovascular: No reports of weakness or numbness All medications have been reviewed Physical exam: Gen: This is a 37-year-old female who is awake, alert and oriented 3, well- developed, well-nourished HEENT: Head is atraumatic, normocephalic. Pupils equal, round. Sclerae is anicteric. NECK: Supple. No JVD. No lymphadenopathy. No thyromegaly. LUNGS: Diminished breath sounds bilaterally. No wheezes or rhonchi. No intercostal retractions. HEART: Regular rate and rhythm. No murmur. ABDOMEN: Soft. Bowel sounds are present. No masses. No tenderness. EXTREMITIES: No pedal edema. No calf tenderness. NEUROLOGICAL: Patient is awake, alert and oriented x3. Cranial nerves 2 through 12 are grossly intact. Assessment: -Sepsis; related to right mid and lower lobe pneumonia, present on admission likely community-acquired -Right mid and lower lobe pneumonia with concerns of Legionella pneumonia as urine Legionella was positive -Electrolyte imbalance; hypokalemia, improved after replacement -Elevated d-dimer; CTA chest was completed which is negative for PE -Anxiety history -Seasonal ALLERGY -Chronic pain history -DVT prophylaxis; SCDs -GI prophylaxis -full code Plan: Patient is continued on antibiotics in the form of Zithromax and ceftriaxone. L egionella urine was positive and we'll transition ceftriaxone to Levaquin and infectious disease following recommending increasing the Levaquin dose to 750 mg daily and will likely need a 2 week course orally in the outpatient setting Pulmonary following and chest x-ray continues to show right lobe pneumonia with pleural effusion Patient was continued on IV hydration and will decrease the rate to 75 ML per hour Follow-up labs for a.m. ordered Encouraged increased activity as tolerated Nursing staff made aware that the health department needs to be contacted in regards to the positive Legionella findings. Lab contacts health department Will await pulmonary and infectious disease clearance for discharge in the possible next 24-48 hours The impression and plan of care has been dictated by Shari Ca, Nurse Practitioner as directed. Dr. Yaw MD I have performed a history and examination and MDM of this patient, discussed the same with the dictator, and agree with the dictator's assessment and plan as written ,documented as a scribe. Based on total visit time, I have performed more than 50% of the visit. Objective - Vital Signs Vital signs: Vital Signs Temp 97.9 F 11/11/22 13:09 Pulse 104 H 11/11/22 16:39 Resp 17 11/11/22 13:09 BP 106/70 11/11/22 13:09 Pulse Ox 97 11/11/22 13:09 FiO2 Intake & Output 11/10/22 11/11/22 11/11/22 18:59 06:59 18:59 Other: # Voids 3 6 3 - Labs CBC & Chem 7: 11/10/22 10:56 11/10/22 10:56 Labs: Abnormal Lab Results - Last 24 Hours (Table) 11/10/22 Range/Units 10:56 Procalcitonin 2.06 H (0.02-0.09) ng/mL Microbiology - Last 24 Hours (Table) 11/09/22 15:39 Blood Culture Gram Stain - Final Blood Blood Culture - Final Coagulase Negative Staph 11/09/22 15:39 Blood Culture - Preliminary Blood
[2022-11-12] MEDS: LORATADINE 10 MG TAB PO SCH (08:22)
[2022-11-12] MEDS: FAMOTIDINE 20 MG TAB PO SCH (08:22)
[2022-11-12] MEDS: MORPHINE SULFATE 4 MG/ML SYRINGE IV PRN (08:22)
--- NOTE | 2022-11-12 08:45 | XR ---
EXAMINATION TYPE: XR chest 1V portable DATE OF EXAM: 11/12/2022 COMPARISON: 11/10/2022 HISTORY: Cough TECHNIQUE: Single frontal view of the chest is obtained. FINDINGS: Moderate right pleural effusion and diffuse. Joint stable. Left lung clear. Heart size nor mal. No pneumothorax. Osseous structures are stable. IMPRESSION: 1. Stable moderate right pleural effusion and right-sided airspace disease correlate for pneumonia.
[2022-11-12] MEDS: IPRATROPIUM-ALBUTEROL 3 ML NEB INHALATION SCH ×2 (09:16→12:39)
[2022-11-12 11:22] LABS: Basophils # (A) 0.02 X 10*3/uL (0.00-0.10); Basophils % (A) 0.3 %; Eosinophils # (A) 0.11 X 10*3/uL (0.04-0.35); Eosinophils % (A) 1.4 %; HCT 30.2 % (37.2-46.3); HGB 9.9 d/dL (12.0-15.0); Lymphocytes # (A) 1.16 X 10*3/uL (0.90-5.00); Lymphocytes % (A) 14.7 %; MCH 30.4 pg (27.0-32.0); MCHC 32.8 d/dL (32.0-37.0); MCV 92.6 FL (80.0-97.0); Mean Platelet Volume 9.1 FL (9.5-12.2); Monocytes # (A) 0.48 X 10*3/uL (0.20-1.00); Monocytes % (A) 6.1 %; NRBC Per 100 WBC 0 X 10*3/uL (0.00-0.01); Platelet Count 492 X 10*3/uL (140-440); RBC 3.26 X 10*6/uL (4.10-5.20); RDW 14.3 % (11.5-14.5); WBC 7.91 X 10*3/uL (4.50-10.00)
[2022-11-12 11:31] LABS: Blood Urea Nitrogen 5.2 mg/dL (9.0-27.0); Calcium 8.5 mg/dL (8.7-10.3); Carbon Dioxide 22.8 mmol/L (21.6-31.8); Chloride 106 mmol/L (96-109); Glucose 95 mg/dL (70-110); Potassium 3.6 mmol/L (3.5-5.5); Sodium 141 mmol/L (135-145)
--- NOTE | 2022-11-12 12:37 | P.PN ---
Subjective Progress Note Date: 11/12/22 I am seeing this patient in consultation today 11/10/2022 for right middle lobe community-acquired pneumonia. Patient is a 37-year-old white female with past medical history significant for intermittent bronchial asthma, and is an ex- tobacco smoker of one week ago. Reportedly only smoked approximately 2 cigarettes per day prior to this.patient presented to emergency room yesterday afternoon complaining of shortness of breath and associated right-sided chest pain that started 2-3 days prior to arrival. she has been using her rescue inhaler frequently throughout the day. Chest pain is nonradiating and worse with coughing and deep breathing. She states that she's had a cough with some small amount of hemoptysis. She also states that she's had some nausea and vomiting with possible bloody emesis. Denies any abdominal pain, diarrhea, constipation. Denies history of GI bleeding, esophageal varices, or heavy NSAID use. Patient is currently sitting up in bed, on room air, in no acute distress. Chest CTA on admission showed no evidence of pulmonary embolism. There was right middle and lower lobe consolidation with air bronchograms and trace right pleural effusion consistent with pneumonia. There is reactive right hilar lymphadenopathy secondary to above. CBC on arrival shows mild leukocytosis with a WBC count of 12.4, hemoglobin 12.9, hematocrit 39.2, platelets 442. Patient was started empirically on a combination of Rocephin and azithromycin. Currently, febrile with a T-max of 101.1 degrees Fahrenheit. BMP on arrival shows sodium 134, potassium 3.2, chloride 100, serum bicarbonate 21, BUN 10, creatinine 0.76, glucose 135. Lactic acid 1.2. Troponin less than 0.012. Influenza, RSV, COVID-19 negative. Normal sinus Infusing at 130 ML's per hour. DuoNeb have been started. Overall, the patient appears nontoxic and is hemodynamically stable. The patient is seen today 11/11/2022 in follow-up on the regular medical floor. She is currently sitting up in bed. Awake and alert in no acute distress. She is still having a loose congested cough. Still having temperatures with a T-max of 102 this morning. She was found to be positive for legionella and is currently on Levaquin. Her pro-calcitonin was 2.06. She is maintaining good O2 saturations in the 90s on room air. No IV fluids. Follow-up chest x-ray was showing similar right mid to lower lung airspace opacities. The patient is seen today 11/12/2022 in follow-up on the regular medical floor. She is awake and alert in no acute distress. Maintaining good O2 saturations in the 90s on room air. No fever the past 24 hours. Follow-up chest x-ray showing improvement. She remains on Levaquin. White count 7.9. Hemoglobin 9.9. Platelets 492. Sodium 141. Potassium 3.6. Bicarb 23. BUN 5. Creatinine 0.5. Objective - Vital Signs Vital signs: Vital Signs Temp 98.3 F 11/12/22 07:06 Pulse 84 11/12/22 09:25 Resp 14 11/12/22 07:06 BP 131/88 11/12/22 07:06 Pulse Ox 95 11/12/22 07:06 FiO2 Intake & Output 11/11/22 11/12/22 11/12/22 18:59 06:59 18:59 Other: # Voids 3 0 - Exam GENERAL EXAM: Alert, pleasant 37-year-old female, sitting up in bed, on room air, comfortable in no apparent distress. HEAD: Normocephalic. EYES: Normal reaction of pupils, equal size. NOSE: Clear with pink turbinates. THROAT: No erythema or exudates. NECK: No masses, no JVD. CHEST: No chest wall deformity. LUNGS: Equal air entry with few scattered rhonchi in the right lung. CVS: S1 and S2 normal with no audible murmur, regular rhythm. ABDOMEN: No hepatosplenomegaly, normal bowel sounds, no guarding or rigidity. SPINE: No scoliosis or deformity SKIN: No rashes CENTRAL NERVOUS SYSTEM: No focal deficits, tone is normal in all 4 extremities. EXTREMITIES: There is no peripheral edema. No clubbing, no cyanosis. Peripheral pulses are intact. - Labs CBC & Chem 7: 11/12/22 06:54 11/12/22 06:54 Labs: Abnormal Lab Results - Last 24 Hours (Table) 11/12/22 11/12/22 Range/Units 06:54 06:54 RBC 3.26 L (4.10-5.20) X 10*6/uL Hgb 9.9 L (12.0-15.0) d/dL Hct 30.2 L (37.2-46.3) % Plt Count 492 H (140-440) X 10*3/uL MPV 9.1 L (9.5-12.2) FL Anion Gap 12.20 H (4.00-12.00) mmol/L BUN 5.2 L (9.0-27.0) mg/dL Creatinine 0.5 L (0.6-1.5) mg/dL BUN/Creatinine Ratio 10.40 L (12.00-20.00) Ratio Calcium 8.5 L (8.7-10.3) mg/dL Microbiology - Last 24 Hours (Table) 11/09/22 15:39 Blood Culture - Preliminary Blood 11/09/22 15:39 Blood Culture Gram Stain - Final Blood Blood Culture - Final Coagulase Negative Staph Assessment and Plan Assessment: Right middle lobe community acquired legionella pneumonia, chest CTA demonstrates right middle lobe consolidation with air bronchograms and trace right pleural effusion consistent with pneumonia. Chest pain, secondary to above. ACS ruled out Suspected hemoptysis, likely secondary to pneumonia, self limiting Elevated d-dimer, pulmonary embolism ruled out Hypokalemia Mild intermittent bronchial asthma, stable Ex smoker Plan: The patient was seen and evaluated Chest x-ray, medications and labs reviewed Stable and on room air Cleared for discharge from the pulmonary standpoint Complete a full 10 day course of Levaquin Follow-up in the office in 1 week I have personally seen and examined the patient, performed the documentation and the assessment and plan as written. Number of minutes spent on the visit: 10.
[2022-11-12 12:43] VITALS: PULSE 88
[2022-11-12 14:34] VITALS: BP 124/79; RESP 16; TEMP 98.1
--- NOTE | 2022-11-12 19:34 | DS ---
DISCHARGE SUMMARY FINAL DIAGNOSES: 1. Right mid and lower lobe pneumonia, possible Legionella pneumonia, with sepsis present on admission. 2. Electrolyte imbalance. 3. Elevated D-dimer. 4. Anxiety. 5. Seasonal allergies. 6. Chronic pain history. DISCHARGE DISPOSITION: The patient will be discharged in stable condition. Discharge is cleared by Pulmonary, Dr. Conde and as well as Infectious Disease, Dr. Sims. Once again, recommended close followup in the outpatient setting. HISTORY OF PRESENT ILLNESS: This is a 37-year-old woman, who was admitted with features of multilobar pneumonia on the right side. Legionella was positive. Seen by Pulmonary and Infectious Disease as mentioned earlier. The patient received Levaquin, and the patient improved significantly. Pulmonary and Infectious Disease cleared the patient for discharge. The patient will be discharged in stable condition and guarded prognosis. PHYSICAL EXAMINATION: VITAL SIGNS: Stable. CARDIOVASCULAR: S1 and S2. RESPIRATORY: A few scattered rhonchi. ABDOMEN: Soft. I have recommended the patient to follow up with Dr. 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 MMODL / IJN: [id number] /
== END 2022-11-12 16:40 | disposition home or self-care (01) | DRG 871 ==
LOC: EC 12:28 → 4SSUR 17:50
PROVIDERS: ADMIT Internal Medicine; ATTEND Internal Medicine
DX: A41.89 Other specified sepsis (principal); A48.1 Legionnaires' disease; J44.0 Chronic obstructive pulmonary disease with (acute) lower respiratory infection; R04.2 Hemoptysis; J45.20 Mild intermittent asthma, uncomplicated; E87.6 Hypokalemia; F41.9 Anxiety disorder, unspecified; F32.A Depression, unspecified; R79.89 Other specified abnormal findings of blood chemistry; G89.29 Other chronic pain; Z98.51 Tubal ligation status; Z20.822 Contact with and (suspected) exposure to COVID-19; F17.210 Nicotine dependence, cigarettes, uncomplicated
CPT/HCPCS: 36415; 71045; 71046; 71275; 80048; 80053; 83605; 84145; 84484; 84703; 85025; 85379; 85610; 85730; 87040; 87449; 87636; 93005; 94640; 94760; 96361; 96365; 96366; 96368; 96375; 99285

== ENCOUNTER → 2023-06-25 | Outpatient (CLI) | payer BC, OTHER ==
--- NOTE | 2023-06-29 09:23 | MM ---
Reason for Exam: Screening (asymptomatic). Baseline mammogram. Patient History: Menarche at age 10. First Full-Term at age 17. Premenopausal. Maternal grandmother had breast cancer at or over age 50. Maternal grandmother had breast cancer at or over age 50. Risk Values: Edna 5 year model risk: 0.4%. NCI Lifetime model risk: 7.3%. Prior Study Comparison: Patient's first Mammogram. Tissue Density: The breasts are extremely dense, which lowers the sensitivity of mammography. Findings: Analyzed By CAD. There is no suspicious group of microcalcifications or new suspicious mass in either breast. Overall Assessment: Negative, BI-RAD 1 Management: Screening Mammogram of both breasts in 1 year. . Patient should continue monthly self-breast exams. A clinical breast exam by your physician is recommended on an annual basis. This exam should not preclude additional follow-up of suspicious palpable abnormalities. Note on Edna scores and lifetime risk: 1. A Edna score greater than 3% is considered moderate risk. If this is the case, consider specialist referral to assess eligibility for a risk reducing agent. 2. If overall lifetime risk for the development of breast cancer is 20% or higher, the patient may qualify for future screening with alternating mammogram and breast MRI. Electronically signed and approved by: Aydin Bob M.D. Radiologis
== END | disposition home or self-care (01) ==
LOC: RADMAMWWP 14:15
PROVIDERS: ATTEND Family Medicine
DX: Z12.31 Encounter for screening mammogram for malignant neoplasm of breast (principal); Z80.3 Family history of malignant neoplasm of breast
CPT/HCPCS: 77067